=== PATIENT | female | born 1985 | race Caucasian/White ===

== ENCOUNTER 2017-05-10 14:28 | Emergency (ER) | payer MEDICAID ==
[~2017-05-10] VITALS: Ht 160 cm; Wt 90.3 kg
[2017-05-10 14:48] VITALS: BP 125/91
[2017-05-10 15:37] LABS: BASOPHILS # (AUTO) 0.2 K/uL (0.00-0.22); BASOPHILS % (AUTO) 2.9 % (0.0-2.0); EOSINOPHILS # (AUTO) 0.1 K/uL (0-0.4); EOSINOPHILS % (AUTO) 0.7 % (0.0-4.0); HEMATOCRIT 42.9 % (36-48); HEMOGLOBIN 14.4 g/dL (12.0-16.0); LYMPHOCYTES # (AUTO) 1.7 K/uL (2.5-16.5); LYMPHOCYTES % (AUTO) 23.9 % (20.5-51.1); MEAN CORPUSCULAR HEMOGLOBIN 31 pg (27-31); MEAN CORPUSCULAR HGB CONC 34 g/dL (33-37); MEAN CORPUSCULAR VOLUME 93 fL (80-94); MONOCYTES # (AUTO) 0.5 K/uL (0.8-1.0); MONOCYTES % (AUTO) 6.4 % (1.7-9.3); NEUTROPHILS # (AUTO) 4.7 K/uL (1.8-7.7); NEUTROPHILS % (AUTO) 66.1 % (42.2-75.2); PLATELET COUNT (AUTO) 297 K/uL (140-450); RED BLOOD CELL COUNT(AUTO) 4.61 MIL/uL (4.20-5.40); RED CELL DISTRIBUTION WIDTH 12.5 % (11.6-13.7); WHITE BLOOD COUNT (AUTO) 7.2 K/uL (4.8-10.8)
[2017-05-10 15:48] LABS: APPEARANCE,URINE SL CLOUDY (CLEAR); BILIRUBIN,URINE 1+ (NEGATIVE); BLOOD, URINE NEGATIVE (NEGATIVE); COLOR,URINE YELLOW (YELLOW); LEUKOCYTE ESTERASE ,URINE NEGATIVE (NEGATIVE); NITRITE, URINE NEGATIVE (NEGATIVE); PH,URINE 5.5 (5.0-9.0); UGLUCOSE NEGATIVE (NEGATIVE)
[2017-05-10 15:48] LABS: ANION GAP 11.7 (8-16); CARBON DIOXIDE 30.3 mmol/L (21-32); CREATININE 0.7 mg/dL (0.6-1.3)
[2017-05-10 15:53] LABS: ALBUMIN 4.5 g/dL (3.4-5.0); TOTAL BILIRUBIN 0.9 mg/dL (0.0-1.0)
[2017-05-10 15:57] LABS: RBC,URINE NONE SEEN /HPF (0-5); WBC,URINE 0-5 (RARE) /HPF (0-5)
--- NOTE | 2017-05-10 17:10 | NUR ---
PT TO ER BED 11
--- NOTE | 2017-05-10 17:13 | NUR ---
32/F BIB SELF C/O LOWER ABD PAIN RADIATING TO LUQ ABDOMINAL PAIN X2 WEEKS. DENIES N/V/D; SKIN IS PINK/WARM/DRY; AAOX4 WITH EVEN AND STEADY GAIT; LUNGS CLEAR BL; PT DENIES ANY FEVER, CP, SOB, OR COUGH AT THIS TIME; PATIENT STATES PAIN OF 8/10 AT THIS TIME; PATIENT POSITIONED FOR COMFORT; HOB ELEVATED; BEDRAILS UP X2; BED DOWN. ER MD MADE AWARE OF PT STATUS.
--- NOTE | 2017-05-10 17:47 | NUR ---
Patient being evaluated by DR MCKENZIE at bedside.
[2017-05-10] MEDS ORDERED: KETOROLAC 60 MG/2 ML VIAL IM ONE (17:55)
[2017-05-10 18:08] VITALS: BP 121/86
--- NOTE | 2017-05-10 18:08 | NUR ---
Patient discharged with v/s stable. Written and verbal after care instructions given and explained. Patient alert, oriented and verbalized understanding of instructions. Ambulatory with steady gait. All questions addressed prior to discharge. ID band removed. Patient advised to follow up with PMD. Rx of MOTRIN & ZOFRAN given. Patient educated on indication of medication including possible reaction and side effects. Opportunity to ask questions provided and answered.
== END 2017-05-10 18:08 | disposition home or self-care (01) ==
LOC: MED 14:28
DX: R10.32 Left lower quadrant pain (principal); Z90.49 Acquired absence of other specified parts of digestive tract
CPT/HCPCS: 36415; 76856; 80053; 81001; 81025; 83690; 85025; 96372; 99285; J1885; Q0092

== ENCOUNTER 2018-12-19 12:32 | Emergency (ER) | payer SELFPAY ==
[~2018-12-19] VITALS: Ht 160 cm; Wt 92.1 kg
[2018-12-19 12:36] VITALS: BP 123/91
--- NOTE | 2018-12-19 12:50 | NUR ---
PT C/O 8/10 HEADACHE STARTING AFTER HITTING HER HEAD WHILE GETTING OUT OF HER CAR YESTERDAY AND SHE NOW FEELS DIZZY AND HAS A HEADACHE AND NUMBNESS ON HER LEFT-SIDED FACE, AND LEFT EYE TEARING. PT A & 0 X4, NO SLURRED SPEECH. DENIES NAUSEA AND VOMITING. PATIENT STATES PAIN OF 10/10 AT THIS TIME; VSS; PATIENT POSITIONED FOR COMFORT; HOB ELEVATED; BEDRAILS UP X1; BED DOWN. ER MD MADE AWARE OF PT STATUS.
--- NOTE | 2018-12-19 14:15 | NUR ---
Dr. Mo is evaluating pt at bedside.
--- NOTE | 2018-12-19 14:36 | NUR ---
AWAITING PT'S DISCHARGE PAPERWORK FROM DR. PEREZ.
[2018-12-19 14:44] VITALS: BP 133/85
== END 2018-12-19 14:44 | disposition home or self-care (01) ==
LOC: MED 12:32
DX: S00.03XA Contusion of scalp, initial encounter (principal); R42 Dizziness and giddiness; W22.8XXA Striking against or struck by other objects, initial encounter; Y93.89 Activity, other specified; Y92.89 Other specified places as the place of occurrence of the external cause; Y99.8 Other external cause status
CPT/HCPCS: 81025; 99283

== ENCOUNTER 2019-04-09 19:26 | Emergency (ER) | payer MEDICAID ==
[~2019-04-09] VITALS: Ht 160 cm; Wt 89.8 kg
[2019-04-09 19:30] VITALS: BP 119/71
--- NOTE | 2019-04-09 21:55 | NUR ---
PT AMBULATED TO BED 1 WITH PARTNER
[2019-04-09 22:07] LABS: BASOPHILS % (AUTO) 0.3 % (0.0-2.0); EOSINOPHILS % (AUTO) 0.7 % (0.0-4.0); HEMATOCRIT 38.4 % (36-48); HEMOGLOBIN 12.9 g/dL (12.0-16.0); LYMPHOCYTES # (AUTO) 1.9 K/uL (2.5-16.5); LYMPHOCYTES % (AUTO) 29.3 % (20.5-51.1); MEAN CORPUSCULAR HEMOGLOBIN 32 pg (27-31); MEAN CORPUSCULAR HGB CONC 34 g/dL (33-37); MEAN CORPUSCULAR VOLUME 94.7 fL (80-94); MONOCYTES # (AUTO) 0.5 K/uL (0.8-1.0); MONOCYTES % (AUTO) 7.9 % (1.7-9.3); NEUTROPHILS # (AUTO) 4.1 K/uL (1.8-7.7); NEUTROPHILS % (AUTO) 61.8 % (42.2-75.2); PLATELET COUNT (AUTO) 256 K/uL (140-450); RED BLOOD CELL COUNT(AUTO) 4.05 MIL/uL (4.20-5.40); RED CELL DISTRIBUTION WIDTH 12.8 % (11.6-13.7); WHITE BLOOD COUNT (AUTO) 6.6 K/uL (4.8-10.8)
--- NOTE | 2019-04-09 22:20 | NUR ---
ASSESSMENT COMPLETED AT THIS TIME FOR LQ PAIN. SEE ASSESSMENT FOR DETAILS PATIENT LAYING IN BED. SPOUSE AT BEDSIDE. BED IN LOW LOCKED POSITION. SIDE RAIL UP ON ONE SIDE. NO NEEDS STATED.
[2019-04-09 22:36] VITALS: BP 122/75
--- NOTE | 2019-04-09 22:36 | NUR ---
Patient discharged with v/s stable. Written and verbal after care instructions given and explained. Patient verbalized understanding. Ambulatory with steady gait. All questions addressed prior to discharge. Advised to follow up with OBGYN
[2019-04-09 22:46] LABS: APPEARANCE,URINE HAZY (CLEAR); BILIRUBIN,URINE NEGATIVE (NEGATIVE); BLOOD, URINE NEGATIVE (NEGATIVE); COLOR,URINE YELLOW (YELLOW); LEUKOCYTE ESTERASE ,URINE 1+ (NEGATIVE); NITRITE, URINE NEGATIVE (NEGATIVE); PH,URINE 6.5 (5.0-9.0); UGLUCOSE NEGATIVE (NEGATIVE)
[2019-04-09 23:21] LABS: RBC,URINE 0-5 /HPF (0-5)
== END 2019-04-09 22:36 | disposition home or self-care (01) ==
LOC: MED 19:26
DX: O20.8 Other hemorrhage in early pregnancy (principal); R10.84 Generalized abdominal pain; Z3A.12 12 weeks gestation of pregnancy
CPT/HCPCS: 36415; 76801; 81001; 81025; 84702; 85025; 86900; 86901; 87086; 99284

== ENCOUNTER 2021-04-06 12:25 | Emergency (ER) | payer MEDICAID, OTHER ==
[~2021-04-06] VITALS: Ht 160 cm; Wt 91.6 kg
[2021-04-06 12:44] VITALS: BP 157/106
--- NOTE | 2021-04-06 14:12 | NUR ---
Patient ambulated with steady gait to bed 12.
--- NOTE | 2021-04-06 14:30 | NUR ---
36 Y/O FEMALE BIB SELF WITH C/O CHEST PAIN DESCRIBES BURNING RADIATES TO LEFT SIDE X3 DAYS. PT STATES INTERMITTENT EPISODES OF NAUSEA AND DIZZINESS. DENIES FEVER, CHILLS. HAD NEGATIVE COVID TEST YESTERDAY. DENIES PMH NKA
[2021-04-06] MEDS ORDERED: KETOROLAC 30 MG/ML VIAL IM ONE (14:40)
--- NOTE | 2021-04-06 14:45 | NUR ---
DR. HIRSCH AT PT BEDSIDE FOR FURTHER EVALUATION.
[2021-04-06 15:12] LABS: BASOPHILS % (AUTO) 0.7 % (0.0-2.0); EOSINOPHILS % (AUTO) 0.8 % (0.0-4.0); HEMATOCRIT 43.4 % (36-48); HEMOGLOBIN 14.6 g/dL (12.0-16.0); LYMPHOCYTES # (AUTO) 1.6 K/uL (2.5-16.5); LYMPHOCYTES % (AUTO) 33.7 % (20.5-51.1); MEAN CORPUSCULAR HEMOGLOBIN 31 pg (27-31); MEAN CORPUSCULAR HGB CONC 34 g/dL (33-37); MEAN CORPUSCULAR VOLUME 93.2 fL (80-94); MONOCYTES # (AUTO) 0.4 K/uL (0.8-1.0); MONOCYTES % (AUTO) 7.9 % (1.7-9.3); NEUTROPHILS # (AUTO) 2.6 K/uL (1.8-7.7); NEUTROPHILS % (AUTO) 56.9 % (42.2-75.2); PLATELET COUNT (AUTO) 323 K/uL (140-450); RED BLOOD CELL COUNT(AUTO) 4.66 MIL/uL (4.20-5.40); RED CELL DISTRIBUTION WIDTH 13.1 % (11.6-13.7); WHITE BLOOD COUNT (AUTO) 4.6 K/uL (4.8-10.8)
[2021-04-06 15:29] LABS: ALBUMIN 4.1 g/dL (3.4-5.0); ANION GAP 10.4 (8-16); CARBON DIOXIDE 27.3 mmol/L (21-32); CREATININE 0.5 mg/dL (0.6-1.3); POTASSIUM 3.7 mmol/L (3.5-5.1); TOTAL BILIRUBIN 0.6 mg/dL (0.0-1.0)
[2021-04-06] MEDS ORDERED: NAPR-54 PO (15:48)
[2021-04-06] MEDS ORDERED: DIAZ5TAB8 PO (15:48)
[2021-04-06 16:15] VITALS: BP 131/84
--- NOTE | 2021-04-06 16:15 | NUR ---
Patient discharged with v/s stable. Written and verbal after care instructions given FOR CHEST WALL PAIN and explained. Patient alert, oriented and verbalized understanding of instructions. Ambulatory with steady gait. All questions addressed prior to discharge. ID band removed. Patient advised to follow up with PMD. Rx of NAPROXEN AND VALIUM given. Patient educated on indication of medication including possible reaction and side effects. Opportunity to ask questions provided and answered.
== END 2021-04-06 16:15 | disposition home or self-care (01) ==
LOC: MED 12:25
DX: R07.89 Other chest pain (principal)
CPT/HCPCS: 36415; 71045; 80053; 83690; 84484; 85025; 93005; 96372; 99285; J1885